=== PATIENT | male | born 1975 | race Two or more races ===

== ENCOUNTER 2024-08-17 13:10 | Emergency (ER) | payer SELFPAY ==
[2024-08-17 13:17] VITALS: RESP 18; BMI 36.0
[2024-08-17] MEDS ORDERED: diazePAM 2 MG TABLET ONE (14:45)
[2024-08-17] MEDS ORDERED: predniSONE 20 MG TABLET (UD) ONE (14:45)
[2024-08-17] MEDS ORDERED: KETOROLAC TROMETHAMINE 30 MG/1 ML VIAL ONE (14:45)
[2024-08-17] MEDS ORDERED: LIDOCAINE 5% TOPICAL PATCH ONE (14:45)
[2024-08-17] MEDS: diazePAM 2 MG TABLET PO ONE (14:50)
[2024-08-17] MEDS: predniSONE 20 MG TABLET (UD) PO ONE (14:50)
[2024-08-17] MEDS: KETOROLAC TROMETHAMINE 30 MG/1 ML VIAL IM ONE (14:55)
[2024-08-17] MEDS: LIDOCAINE 5% TOPICAL PATCH TP ONE (14:55)
[2024-08-17 16:29] VITALS: BP 161/87; PULSE 66; TEMP 98
[2024-08-17] MEDS ORDERED: LIDOCAINE PATCH REMOVAL MC SCH (22:00)
== END 2024-08-17 16:40 | disposition home or self-care (01) ==
LOC: JERFT 13:10
PROC: 3E0233Z Introduction of Anti-inflammatory into Muscle, Percutaneous Approach (ICD-10-PCS; principal; 2024-08-17)
DX: M54.42 Lumbago with sciatica, left side (principal); R20.0 Anesthesia of skin
CPT/HCPCS: 72100-TC-FY; 99284-25